=== PATIENT | male | born 1980 ===

== ENCOUNTER → 2023-10-17 | Outpatient (CLI) | payer BC | END | disposition home or self-care (01) | LOC: LAB SHORT 17:33 → LAB 17:33 | DX: R30.0 Dysuria (principal); R35.0 Frequency of micturition; R31.9 Hematuria, unspecified | CPT/HCPCS: 87077; 87086; 87186 ==

== ENCOUNTER 2024-12-03 19:33 | Emergency (ER) | payer BC, OTHER ==
[~2024-12-03] VITALS: Ht 172.7 cm; Wt 72.6 kg
[2024-12-03 19:47] VITALS: BP 140/118
== END 2024-12-03 20:55 | disposition home or self-care (01) ==
LOC: ER 19:33
DX: S61.411A Laceration without foreign body of right hand, initial encounter (principal); S61.012A Laceration without foreign body of left thumb without damage to nail, initial encounter; W27.8XXA Contact with other nonpowered hand tool, initial encounter
CPT/HCPCS: 12002; 99282-25